=== PATIENT | female | born 1945 | race Caucasian/White ===

== ENCOUNTER 2018-06-21 18:41 | Observation (INO) | payer OTHER, BC ==
--- NOTE | 2018-06-21 20:13 | RAD REPORT ---
EXAM DESCRIPTION: RAD - Chest Pa And Lat (2 Views) - 06/21/2018 7:55 pm CLINICAL HISTORY: Cough, sore throat COMPARISON: October 2016 TECHNIQUE: PA and lateral views of the chest were obtained. FINDINGS: The lungs are normal volume. Patient has a mild baseline prominence of the lung markings. Focal posterior left base opacification is present suspicious for early pneumonia. Heart size is no rmal and central vasculature is within normal limits. No pleural effusion or pneumothorax seen. No acute bony finding noted. No aortic abnormality. IMPRESSION: Early left lung base pneumonia.
[2018-06-21 20:22] LABS: Potassium 3.1 mmol/L (3.5-5.1)
[2018-06-21 20:23] LABS: Absolute Lymphocytes (CBC) 2.3 K/uL (0.7-4.9); Absolute Monocytes 1.4 K/uL (0.1-1.3); Absolute Neutrophil 17.5 K/uL (1.8-8.0); Basophils % 0.2 % (0-1.3); Eosinophils % 0.1 % (0-4.4); Hematocrit 37.6 % (36.0-45.0); Lymphocytes % 10.9 % (15.3-44.8); Monocytes % 6.6 % (3.3-12.3)
[2018-06-21] MEDS ORDERED: MAGNESIUM HYDROXIDE 8% 30 ML PO PRN (20:44)
[2018-06-21] MEDS ORDERED: ONDANSETRON 4 MG/2 ML VIAL IV PRN (20:44)
[2018-06-21] MEDS ORDERED: CEFTRIAXONE 1000 MG/VIAL ONE (20:49)
[2018-06-21] MEDS ORDERED: AZITHROMYCIN 250 MG TAB ONE (20:49)
[2018-06-21] MEDS ORDERED: NA CHLORIDE 0.9% 50 ML IV ONE (20:50)
[2018-06-21] MEDS ORDERED: ALBUTEROL 2.5 MG/3 ML NEB SOL NEB SCH (21:00)
--- NOTE | 2018-06-21 21:10 | ER ---
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 Transition of care: patient was not received from another setting of care. Onset of symptoms was June 21, 2018. Risk Assessment: Do you want to hurt yourself or someone else? Patient reports no desire to harm self or others. Initial Sepsis Screen: Does the patient meet any 2 criteria? Yes Does the patient have a suspected source of infection? No. Patient's initial sepsis screen is negative. Care prior to arrival: None. 18:49 Method Of Arrival: Ambulatory 18:49 Acuity: MEENU 4 hj Triage Assessment: 18:50 General: Appears in no apparent distress. uncomfortable, Behavior is calm, cooperative, hj appropriate for age. Pain: Complains of pain in throat. Historical: - Allergies: 18:50 No Known Allergies; hj - Home Meds: 18:50 HRT [Active]; unknown antidepressant [Active]; hj - PMHx: 18:50 Depression; hj - PSHx: 18:50 Hysterectomy; Cholecystectomy; hj - Immunization history:: Adult Immunizations up to date. - Social history:: Smoking status: Patient/guardian denies using tobacco, Patient/guardian denies using alcohol. - Ebola Screening: : Patient negative for fever greater than or equal to 101.5 degrees Fahrenheit, and additional compatible Ebola Virus Disease symptoms Patient denies exposure to infectious person Patient denies travel to an Ebola-affected area in the 21 days before illness onset. Screenin:50 Abuse screen: Denies threats or abuse. Denies injuries from another. Nutritional hj screening: No deficits noted. Tuberculosis screening: No symptoms or risk factors identified. Fall Risk None identified. Assessment: 18:51 Respiratory: Airway is patent Respiratory effort is even, unlabored, Respiratory hj pattern is regular, symmetrical, EENT: Throat. 19:20 Reassessment: Patient appears in no apparent distress at this time. Patient and/or cc3 family updated on plan of care and expected duration. Pain level reassessed. Patient is alert, oriented x 3, equal unlabored respirations, skin warm/dry/pink. 20:26 Reassessment: Patient appears in no apparent distress at this time. Patient and/or cc3 family updated on plan of care and expected duration. Pain level reassessed. Patient is alert, oriented x 3, equal unlabored respirations, skin warm/dry/pink. Laboratory called for critical lab result of WBC 21.3, informed Dr. Calvillo. 21:36 Reassessment: Patient appears in no apparent distress at this time. Patient and/or cc3 family updated on plan of care and expected duration. Pain level reassessed. Patient is alert, oriented x 3, equal unlabored respirations, skin warm/dry/pink. 21:50 Reassessment: Patient appears in no apparent distress at this time. Patient and/or cc3 family updated on plan of care and expected duration. Pain level reassessed. Patient is alert, oriented x 3, equal unlabored respirations, skin warm/dry/pink. Room available in 214, called for report but was told by charge nurse Jessica to wait for their call. 22:10 Reassessment: Patient appears in no apparent distress at this time. Patient and/or cc3 family updated on plan of care and expected duration. Pain level reassessed. Patient is alert, oriented x 3, equal unlabored respirations, skin warm/dry/pink. report called to MARÍA Briscoe for continuity of care. 22:54 Reassessment: Patient appears in no apparent distress at this time. Patient and/or cc3 family updated on plan of care and expected duration. Pain level reassessed. Patient is alert, oriented x 3, equal unlabored respirations, skin warm/dry/pink. Patient left ER for admission vitally stable by wheelchair escorted by RENETTA Johnson. Vital Signs: 18:51 BP 131 / 56; Pulse 97; Resp 20; Temp 100.7(O); Pulse Ox 96% on R/A; Weight 68.04 kg; hj Height 5 ft. 2 in. (157.48 cm); Pain 4/10; 20:40 BP 150 / 81; Pulse 93; Resp 20 S; Pulse Ox 96% on R/A; cc3 21:27 BP 149 / 70; Pulse 81; Resp 19 S; Temp 99.3(O); Pulse Ox 96% on R/A; cc3 22:44 BP 127 / 67; Pulse 88; Resp 20 S; Pulse Ox 95% on R/A; cc3 18:51 Body Mass Index 27.44 (68.04 kg, 157.48 cm) ED Course: 18:44 Patient arrived in ED. mr 18:45 Presley Awan MD is Private Physician. mr 18:50 Triage completed. hj 18:51 Arm band placed on left wrist. hj 18:51 Patient has correct armband on for positive identification. Bed in low position. Call hj light in reach. Side rails up X 1. 19:20 Leonel Calvillo MD is Attending Physician. gs 19:20 Marya Gannon is Primary Nurse. cc3 19:47 Patient moved to radiology via wheelchair. az 19:50 X-ray completed. Patient tolerated procedure well. az 19:54 Patient moved back from radiology. az 19:55 XRAY Chest Pa And Lat (2 Views) In Process Unspecified. EDMS 20:15 Inserted saline lock: 22 gauge in left antecubital area, using aseptic technique. Blood cc3 collected. 20:15 Initial lab(s) drawn, by me, sent to lab. cc3 21:08 Justino Santana MD is Hospitalizing Provider. gs 22:54 No provider procedures requiring assistance completed. Patient admitted, IV remains in cc3 place. Administered Medications: 20:45 Drug: Rocephin - (cefTRIAXone) 1 grams Route: IVPB; Infused Over: 30 mins; Site: left cc3 antecubital; 21:20 Follow up: Response: No adverse reaction; IV Status: Completed infusion; IV Intake: [id number] 20:45 Drug: Zithromax 500 mg Route: PO; cc3 21:20 Follow up: Response: No adverse reaction cc3 Intake: 21:20 IV: 50ml; Total: 50ml. cc3 Outcome: 21:10 Decision to Hospitalize by Provider. gs 22:10 Admitted to Med/surg accompanied by tech, via wheelchair, room 214, with chart, Report cc3 called to SUMEET Briscoe 22:10 Condition: stable 22:10 Instructed on the need for admit, Demonstrated understanding of instructions. 22:54 Patient left the ED. cc3 Signatures: Dispatcher [employer] Mary SaulStone RN RN Leonel Calvillo MD MD gs Cordel, Charlene cc3 Amalia Miller Gabriella Corrections: (The following items were deleted from the chart) 18:54 18:51 Pulse 97bpm; Resp 20bpm; Pulse Ox 96% RA; Temp 100.7F Oral; 68.04 kg; Height 5 hj ft. 2 in.; BMI: 27.4; Pain 4/10; hj 18:54 18:51 Pulse 97bpm; Resp 20bpm; Pulse Ox 96% RA; Temp 100.7F Oral; 68.04 kg; Height 5 hj ft. 2 in.; BMI: 27.4; Pain 4/10; hj 22:25 21:50 Reassessment: Patient appears in no apparent distress at this time. Patient cc3 and/or family updated on plan of care and expected duration. Pain level reassessed. Patient is alert, oriented x 3, equal unlabored respirations, skin warm/dry/pink. Room available in 214, called for report but was told cc3 22:52 22:10 Reassessment: Patient appears in no apparent distress at this time. Patient cc3 and/or family updated on plan of care and expected duration. Pain level reassessed. Patient is alert, oriented x 3, equal unlabored respirations, skin warm/dry/pink. report to MARÍA Briscoe 3 06/22 00:01 06/21 21:05 Inserted saline lock: 22 gauge in left antecubital area, using aseptic cc3 technique. Blood collected. 06/22 00:06/21 21:05 Initial lab(s) drawn, by me, sent to lab. cc3
--- NOTE | 2018-06-21 21:11 | EDPHYS ---
Physician Documentation [facility] Name: Ronal Milligan Age: 73 yrs Sex: Female : 1945 Arrival Date: 06/21/2018 Time: 18:44 Bed 16 Private MD: Presley Awan V ED Physician Leonel Calvillo HPI: 06/21 20:54 This 73 yrs old Female presents to ER via Ambulatory with complaints of gs Cough, Sore Throat, Decreased Appetite. 20:54 The patient or guardian reports cough. gs 21:00 Onset: The symptoms/episode began/occurred 1 week(s) ago, and became worse and became gs persistent. Severity of symptoms: At their worst the symptoms were moderate, in the emergency department the symptoms are unchanged. Modifying factors: The symptoms are alleviated by nothing, the symptoms are aggravated by nothing. Associated signs and symptoms: Pertinent positives: fever, sore throat, laryngitis. The patient has experienced similar episodes in the past, a few times. The patient has not recently seen a physician. Historical: - Allergies: 18:50 No Known Allergies; hj - Home Meds: 18:50 HRT [Active]; unknown antidepressant [Active]; hj - PMHx: 18:50 Depression; hj - PSHx: 18:50 Hysterectomy; Cholecystectomy; hj - Immunization history:: Adult Immunizations up to date. - Social history:: Smoking status: Patient/guardian denies using tobacco, Patient/guardian denies using alcohol. - Ebola Screening: : Patient negative for fever greater than or equal to 101.5 degrees Fahrenheit, and additional compatible Ebola Virus Disease symptoms Patient denies exposure to infectious person Patient denies travel to an Ebola-affected area in the 21 days before illness onset. ROS: 21:00 All other systems are negative. gs Exam: 21:00 Head/Face: Normocephalic, atraumatic. Eyes: Pupils equal round and reactive to light, gs extra-ocular motions intact. Lids and lashes normal. Conjunctiva and sclera are non-icteric and not injected. Cornea within normal limits. Periorbital areas with no swelling, redness, or edema. Neck: Trachea midline, no thyromegaly or masses palpated, and no cervical lymphadenopathy. Supple, full range of motion without nuchal rigidity, or vertebral point tenderness. No Meningismus. Chest/axilla: Normal chest wall appearance and motion. Nontender with no deformity. No lesions are appreciated. Cardiovascular: Regular rate and rhythm with a normal S1 and S2. No gallops, murmurs, or rubs. Normal PMI, no JVD. No pulse deficits. Abdomen/GI: Soft, non-tender, with normal bowel sounds. No distension or tympany. No guarding or rebound. No evidence of tenderness throughout. Back: No spinal tenderness. No costovertebral tenderness. Full range of motion. Skin: Warm, dry with normal turgor. Normal color with no rashes, no lesions, and no evidence of cellulitis. MS/ Extremity: Pulses equal, no cyanosis. Neurovascular intact. Full, normal range of motion. Neuro: Awake and alert, GCS 15, oriented to person, place, time, and situation. Cranial nerves II-XII grossly intact. Motor strength 5/5 in all extremities. Sensory grossly intact. Cerebellar exam normal. Normal gait. 21:00 Constitutional: The patient appears alert, awake. 21:00 ENT: TM's: are normal, Posterior pharynx: erythema, that is moderate, Voice: is hoarse. 21:00 Respiratory: mild respiratory distress is noted, Respirations: tachypnea, that is mild, Breath sounds: rhonchi, that are mild, are located in both bases. Vital Signs: 18:51 BP 131 / 56; Pulse 97; Resp 20; Temp 100.7(O); Pulse Ox 96% on R/A; Weight 68.04 kg; Height 5 ft. 2 in. (157.48 cm); Pain 4/10; 20:40 BP 150 / 81; Pulse 93; Resp 20 S; Pulse Ox 96% on R/A; cc3 21:27 BP 149 / 70; Pulse 81; Resp 19 S; Temp 99.3(O); Pulse Ox 96% on R/A; cc3 22:44 BP 127 / 67; Pulse 88; Resp 20 S; Pulse Ox 95% on R/A; cc3 18:51 Body Mass Index 27.44 (68.04 kg, 157.48 cm) MDM: 19:32 Patient medically screened. 21:00 Differential Diagnosis: Bronchitis Influenza Viral Syndrome Pneumonia. Data reviewed: vital signs, nurses notes. Response to treatment: the patient's symptoms have mildly improved after treatment, and as a result, I will discharge patient. 06/21 18:53 Order name: Flu; Complete Time: 19:32 hj 06/21 18:53 Order name: Strep; Complete Time: 19:32 hj 06/21 19:36 Order name: CBC with Diff; Complete Time: 20:39 06/21 19:36 Order name: Basic Metabolic Panel 06/21 20:33 Order name: Blood Culture* 06/21 20:49 Order name: CBC with Automated Diff EDMS 06/21 20:49 Order name: CBC with Automated Diff EDMS 06/21 20:49 Order name: Comprehensive Metabolic Panel EDMS 06/21 20:49 Order name: Comprehensive Metabolic Panel EDMS 06/21 20:49 Order name: Lactate EDMS 06/21 20:49 Order name: Lactate EDMS 06/21 20:49 Order name: Lipid Profile EDMS 06/21 20:49 Order name: Lipid Profile EDMS 06/21 20:49 Order name: Magnesium EDMS 06/21 19:36 Order name: XRAY Chest Pa And Lat (2 Views); Complete Time: 20:16 06/21 20:49 Order name: Regular EDMS 06/21 20:49 Order name: Magnesium EDMS 06/21 20:49 Order name: Phosphorus EDMS 06/21 20:49 Order name: Phosphorus EDMS 06/21 20:49 Order name: NT PRO-BNP EDVA 06/21 20:49 Order name: NT PRO-BNP EDMS 06/21 21:49 Order name: Lactate EDMS 06/21 21:59 Order name: NT PRO-BNP EDMS Administered Medications: 20:45 Drug: Rocephin - (cefTRIAXone) 1 grams Route: IVPB; Infused Over: 30 mins; Site: left cc3 antecubital; 21:20 Follow up: Response: No adverse reaction; IV Status: Completed infusion; IV Intake: [id number] 20:45 Drug: Zithromax 500 mg Route: PO; cc3 21:20 Follow up: Response: No adverse reaction cc3 Disposition: 06/21/18 21:10 Hospitalization ordered by Justino Santana for Inpatient Admission. Preliminary diagnosis is Lobar pneumonia, unspecified organism. - Bed requested for Telemetry/MedSurg (Inpatient). - Status is Inpatient Admission. cc3 - Condition is Stable. - Problem is new. - Symptoms have improved. UTI on Admission? No Critical care time excluding procedures: 21:00 Critical care time: Bedside Care: 10 minutes, Consultation: 10 minutes, Family gs Intervention: 10 minutes. Total time: 30 minutes Signatures: Dispatcher [employer] EDMS Jennifer Joseph RN RN Stone Mazariegos RN RN Leonel Calvillo MD MD Marya Gannon 3 Corrections: (The following items were deleted from the chart) 21:44 21:10 Hospitalization Ordered by Justino Santana MD for Inpatient Admission. Preliminary diagnosis is Lobar pneumonia, unspecified organism. Bed requested for Telemetry/MedSurg (Inpatient). Status is Inpatient Admission. Condition is Stable. Problem is new. Symptoms have improved. UTI on Admission? No. 22:54 21:44 06/21/2018 21:10 Hospitalization Ordered by Justino Santana MD for Inpatient cc3 Admission. Preliminary diagnosis is Lobar pneumonia, unspecified organism. Bed requested for Telemetry/MedSurg (Inpatient). Status is Inpatient Admission. Condition is Stable. Problem is new. Symptoms have improved. UTI on Admission? No.
[2018-06-21] MEDS ORDERED: POTASSIUM CL SA 10 MEQ TAB PO ONE (22:07)
[2018-06-21] MEDS: NA CHLORIDE 0.9% 1,000 ML IV SCH (23:12)
[2018-06-21] MEDS: PIPER/TAZO/NS 3.375gm 3.375 GM/100 ML BAG IVPB SCH (23:14)
[2018-06-21] MEDS ORDERED: PIPER/TAZO/NS 3.375gm 6.750 GM/200 ML BAG ONE (23:19)
[2018-06-21 23:25] VITALS: BMI 27.4
[2018-06-22] MEDS: IPRATROPIUM BROM 0.5MG/2.5ML NEB SCH ×6 (04:40→19:25)
[2018-06-22] MEDS: PIPER/TAZO/NS 3.375gm 3.375 GM/100 ML BAG IVPB SCH (05:07)
[2018-06-22] MEDS: ACETAMINOPHEN 500 MG TAB PO PRN (05:25)
[2018-06-22 05:32] LABS: Urine Appearance CLEAR; Urine Bilirubin NEGATIVE (NEG); Urine Blood 1+ (NEG); Urine Color YELLOW; Urine Glucose NEGATIVE (NEG); Urine Protein NEGATIVE (NEG); Urine Specific Gravity 1.015 (1.005-1.030); Urine Urobilinogen 0.2 mg/dL (0.2-1.0)
[2018-06-22 05:41] LABS: Urine Microscopic Reflex ORDER UMIC
[2018-06-22 05:44] LABS: Urine Bacteria <20 /HPF (<20); Urine Culture Reflex Order NOT NEEDED; Urine RBC <5 /HPF (NONE SEEN)
[2018-06-22 05:54] LABS: Albumin 2.2 g/dL (3.4-5.0); Bilirubin Total 0.3 mg/dL (0.2-1.0); Magnesium 1.9 mg/dL (1.8-2.4); Phosphorus 2.5 mg/dL (2.5-4.9); Potassium 3.5 mmol/L (3.5-5.1); Protein, Total 7.5 g/dL (6.4-8.2)
[2018-06-22 06:00] LABS: Absolute Lymphocytes (CBC) 3.7 K/uL (0.7-4.9); Absolute Monocytes 1.1 K/uL (0.1-1.3); Absolute Neutrophil 10.2 K/uL (1.8-8.0); Basophils % 0.5 % (0-1.3); Eosinophils % 0.3 % (0-4.4); Hematocrit 32.9 % (36.0-45.0); Lymphocytes % 24.6 % (15.3-44.8); MPV 7.9 fL (7.6-11.3); Monocytes % 7.6 % (3.3-12.3); RBC Red Blood Cell Count 3.86 M/uL (3.86-4.86)
[2018-06-22] MEDS ORDERED: POTASSIUM PHOS IN 0.9 % NACL 15 MMOL/250 ML BAG IV ONE (07:00)
[2018-06-22] MEDS ORDERED: PNEUMOCOCCAL VACCINE 0.5 ML IMVAC ONE (08:00)
--- NOTE | 2018-06-22 08:16 | P.HP ---
Certification for Inpatient Patient admitted to: Observation With expected LOS: <2 Midnights Patient will require the following post-hospital care: None Practitioner: I am a practitioner with admitting privileges, knowledge of patient current condition, hospital course, and medical plan of care. Services: Services provided to patient in accordance with Admission requirements found in Title 42 Section 412.3 of the Code of Federal Regulations Patient History Date of Service: 06/21/18 Reason for admission: Acute strep pharyngitis History of Present Illness: Patient is a 73-year-old female came into the hospital with fever, cough and a sore throat. This been going on for the last week but has gotten progressively worse over the last couple of days. She is seen in the emergency room, and her workup revealed that she had strep pharyngitis. Her white count was significantly elevated, and her chest x-ray revealed a focal posterior left base opacification suspicious for early pneumonia. Decision was made to admit the patient for IV antibiotic therapy, and if we also wanted to monitor her symptomatically to make sure the chest x-ray findings or something that was going to be progressively getting worse. She was put in droplet precautions but will go ahead and discontinue this. Allergies No Known Drug Allergies Allergy (Verified 06/21/18 23:27) none Home Medications: Venlafaxine HCl [Effexor*] 75 mg PO DAILY 06/21/18 - Past Medical/Surgical History Has patient received pneumonia vaccine in the past: No Diabetic: No -: depression -: hysterectomy -: cholecystectomy - Family History Mother Medical History: Other (see notes) Notes: stroke Father Medical History: Heart disease - Social History Smoking Status: Never smoker Alcohol use: No CD- Drugs: No Caffeine use: Yes Place of Residence: Home Review of Systems 10-point ROS is otherwise unremarkable Physical Examination - Vital Signs Temperature: 97.2 F Blood Pressure: 150/80 Pulse: 76 Respirations: 20 Pulse Ox (%): 96 - Physical Exam General: Alert, In no apparent distress, Oriented x3 HEENT: Atraumatic, Other (Erythematous mucous membrane), EOMI, Sclerae nonicteric Neck: Supple, 2+ carotid pulse no bruit, No LAD, Without JVD or thyroid abnormality Respiratory: Clear to auscultation bilaterally, Normal air movement Cardiovascular: Regular rate/rhythm, Normal S1 S2, No murmurs Gastrointestinal: Normal bowel sounds, Soft and benign, Non-distended, No tenderness Musculoskeletal: No clubbing, No swelling, No tenderness Integumentary: No rashes Neurological: Normal gait, Normal speech, Normal strength at 5/5 x4 extr, Normal tone, Sensation intact, Cranial nerves 3-12 intact, Normal affect Lymphatics: No axilla or inguinal lymphadenopathy - Studies Laboratory Data (last 24 hrs) 06/21/18 20:00: Sodium 135 L, Potassium 3.1 L, BUN 12, Creatinine 1.09, Glucose 113 H 06/21/18 20:00: WBC 21.3 H*, Hgb 12.9, Hct 37.6, Plt Count 375 Microbiology Data (last 24 hrs): 06/21/18 18:56 Nasopharnyx Influenza Type A Antigen Screen - Final 06/21/18 18:56 Nasopharnyx Influenza Type B Antigen Screen - Final 06/21/18 18:56 Throat Group A Streptococcus Rapid Screen - Final Assessment & Plan - Problems (Diagnosis) (1) Acute streptococcal pharyngitis Current Visit: Yes Status: Acute (2) Left lower lobe pneumonia Current Visit: Yes Status: Acute (3) Leukocytosis Current Visit: Yes Status: Acute - Plan 1. Continue with IV antibiotics; may need to add an anti-inflammatory medication as well 2. Awaiting blood culture 3. Repeat chest x-ray if symptoms worsen 4. Continue with nebs as needed 5. O2 per protocol 6. Continue with gentle hydration 7. Repeat labs including CBC and renal function in a.m. 8. GI and DVT prophylaxis Discharge Plan: Home Plan to discharge in: 48 Hours - Advance Directives Does patient have a Living Will: No Does patient have a Durable POA for Healthcare: No - Code Status/Comfort Care Code Status Assessed: Yes Code Status: Full Code Critical Care: No Time Spent Managing PTS Care (In Minutes): 45
[2018-06-22] MEDS ORDERED: PIPER/TAZO/NS 3.375gm 3.375 GM/100 ML BAG IVPB SCH (09:00)
[2018-06-22] MEDS: ENOXAPARIN 40 MG/0.4 ML SQ SCH (09:03)
--- NOTE | 2018-06-22 11:31 | P.PN ---
Subjective Date of Service: 06/22/18 Chief Complaint: SICK SINCE May Subjective: Improving MS DONALD HAS COUGH, CONGESTION, BROWN SPUTUM, SORE THROAT. SHE HAS STREP THROAT POSITIVE AND L BASAL PNEUMONIA. SHE TOOK HER FLU VACCINE. NO ONE IS SICK AROUND HER. SHE IS FEELING SOME BETTER. Review of Systems 10-point ROS is otherwise unremarkable General: Weakness ENT: Throat Pain Respiratory: Cough Physical Examination - Vital Signs Temperature: 97.2 F Blood Pressure: 150/80 Pulse: 76 Respirations: 20 Pulse Ox (%): 96 - Physical Exam General: Alert, In no apparent distress HEENT: Atraumatic, PERRLA, EOMI Neck: Supple, JVD not distended Respiratory: Clear to auscultation bilaterally, Normal air movement Cardiovascular: Regular rate/rhythm, Normal S1 S2 Gastrointestinal: Normal bowel sounds, No tenderness Musculoskeletal: No tenderness Integumentary: No rashes Neurological: Normal speech, Normal tone, Normal affect Lymphatics: No axilla or inguinal lymphadenopathy - Studies Laboratory Data (last 24 hrs) 06/21/18 20:00: Sodium 135 L, Potassium 3.1 L, BUN 12, Creatinine 1.09, Glucose 113 H 06/21/18 20:00: WBC 21.3 H*, Hgb 12.9, Hct 37.6, Plt Count 375 Microbiology Data (last 24 hrs): 06/21/18 18:56 Nasopharnyx Influenza Type A Antigen Screen - Final 06/21/18 18:56 Nasopharnyx Influenza Type B Antigen Screen - Final 06/21/18 18:56 Throat Group A Streptococcus Rapid Screen - Final Medications List Reviewed: Yes Assessment And Plan - Current Problems (Diagnosis) (1) Streptococcus pneumoniae infection Current Visit: Yes Status: Acute Plan: ROCEPHIN IV. WILL DC ZOSYN SHE DOES NOT NEED PSEUDOMONAS OR ANAERBIC COVERAGE. (2) Acute streptococcal pharyngitis Current Visit: Yes Status: Acute Plan: DAILY LAB. WATCH WBC (3) Hyperglobulinemia Current Visit: Yes Status: Acute Plan: THIS CAN BE FROM INFECTION. I WILL CHECK SPEP AND HEP C ANTIBODY.
[2018-06-22] MEDS ORDERED: ALBUTEROL 2.5 MG/3 ML NEB SOL NEB SCH ×2 (12:00→14:00)
[2018-06-22] MEDS: LOSARTAN POTASSIUM 50 MG TABLET PO SCH ×2 (12:25→12:26)
[2018-06-22] MEDS: NA CHLORIDE 0.9% 1,000 ML IV SCH ×2 (12:26→23:02)
[2018-06-22] MEDS ORDERED: ALBUTEROL 2.5 MG/3 ML NEB SOL NEB PRN (13:36)
[2018-06-22] MEDS: CEFTRIAXONE/SWI 1gm 1 GM/10 ML SYR IV SCH (21:07)
[2018-06-23] MEDS: IPRATROPIUM BROM 0.5MG/2.5ML NEB SCH ×4 (01:25→19:24)
[2018-06-23 06:15] LABS: Phosphorus 2.9 mg/dL (2.5-4.9)
[2018-06-23] MEDS: ENOXAPARIN 40 MG/0.4 ML SQ SCH (09:16)
[2018-06-23] MEDS: VENLAFAXINE HCL 75 MG TABLET PO SCH (09:16)
[2018-06-23] MEDS: LOSARTAN POTASSIUM 50 MG TABLET PO SCH ×2 (10:08→23:44)
[2018-06-23] MEDS: NA CHLORIDE 0.9% 1,000 ML IV SCH ×2 (13:10→22:29)
--- NOTE | 2018-06-23 17:32 | P.PN ---
Subjective Date of Service: 06/23/18 Chief Complaint: SICK SINCE May Subjective: Improving MS DONALD HAS COUGH, CONGESTION, BROWN SPUTUM, SORE THROAT. SHE HAS STREP THROAT POSITIVE AND L BASAL PNEUMONIA. SHE TOOK HER FLU VACCINE. NO ONE IS SICK AROUND HER. SHE IS FEELING SOME BETTER. VERY STABLE CLINICALLY. STILL SOME SORENESS THROAT BUT CHEST CONGESTION IS GONE. Review of Systems 10-point ROS is otherwise unremarkable General: Weakness, Malaise Physical Examination - Vital Signs Temperature: 98.1 F Blood Pressure: 154/72 Pulse: 74 Respirations: 14 Pulse Ox (%): 96 - Physical Exam General: Alert, Acute distress, Mild distress HEENT: Atraumatic, PERRLA, EOMI Neck: Supple, JVD not distended Respiratory: Clear to auscultation bilaterally, Normal air movement Cardiovascular: Regular rate/rhythm, Normal S1 S2 Gastrointestinal: Normal bowel sounds, No tenderness Musculoskeletal: No tenderness Integumentary: No rashes Neurological: Normal speech, Normal tone, Normal affect Lymphatics: No axilla or inguinal lymphadenopathy - Studies Medications List Reviewed: Yes Assessment And Plan - Current Problems (Diagnosis) (1) Streptococcus pneumoniae infection Current Visit: Yes Status: Acute Plan: ROCEPHIN IV. WILL DC ZOSYN SHE DOES NOT NEED PSEUDOMONAS OR ANAERBIC COVERAGE. STABLE. DC IN AM POSSIBLE. CHECK LAB AGAIN. (2) Acute streptococcal pharyngitis Current Visit: Yes Status: Acute Plan: DAILY LAB. WATCH WBC (3) Hyperglobulinemia Current Visit: Yes Status: Acute Plan: THIS CAN BE FROM INFECTION. I WILL CHECK SPEP AND HEP C ANTIBODY.
[2018-06-23 18:03] LABS: Absolute Lymphocytes (CBC) 2.2 K/uL (0.7-4.9); Absolute Monocytes 0.7 K/uL (0.1-1.3); Absolute Neutrophil 7.5 K/uL (1.8-8.0); Basophils % 0.6 % (0-1.3); Eosinophils % 4.2 % (0-4.4); Hematocrit 32.4 % (36.0-45.0); Lymphocytes % 20.2 % (15.3-44.8); MPV 7.6 fL (7.6-11.3); Monocytes % 6.8 % (3.3-12.3); RBC Red Blood Cell Count 3.74 M/uL (3.86-4.86)
[2018-06-23 18:07] LABS: Potassium 3.6 mmol/L (3.5-5.1)
[2018-06-23] MEDS ORDERED: POTASSIUM CL SA 10 MEQ TAB PO ONE (18:17)
[2018-06-23 18:35] LABS: Blood Morphology Comment NOTED (NOT SEEN); Platelet Estimate ADEQ
[2018-06-23 18:36] LABS: Stomatocytes 1+
[2018-06-23] MEDS: ACETAMINOPHEN 500 MG TAB PO PRN (20:30)
[2018-06-23] MEDS: CEFTRIAXONE/SWI 1gm 1 GM/10 ML SYR IV SCH (20:32)
[2018-06-23] MEDS ORDERED: PNEUMOCOCCAL VACCINE 0.5 ML IMVAC ONE (22:00)
[2018-06-24] MEDS: IPRATROPIUM BROM 0.5MG/2.5ML NEB SCH ×3 (02:10→13:50)
[2018-06-24] MEDS: ACETAMINOPHEN 500 MG TAB PO PRN ×2 (02:12→09:24)
[2018-06-24] MEDS ORDERED: LOSARTAN POTASSIUM 50 MG TABLET PO SCH (09:00)
[2018-06-24] MEDS: VENLAFAXINE HCL 75 MG TABLET PO SCH (09:24)
[2018-06-24] MEDS: ENOXAPARIN 40 MG/0.4 ML SQ SCH (09:24)
[2018-06-24] MEDS ORDERED: BISOPROLOL/HCTZ 2.5/6.25MG TAB PO ONE (12:20)
--- NOTE | 2018-06-24 12:47 | P.DS ---
Admission Date: 06/21/18 Discharge Date: 06/24/18 Disposition: ROUTINE DISCHARGE Reason for Admission: SICK SINCE May - Problems (1) Streptococcus pneumoniae infection Current Visit: Yes Status: Acute (2) Acute streptococcal pharyngitis Current Visit: Yes Status: Acute (3) Hyperglobulinemia Current Visit: Yes Status: Acute Hospital Course: Ms. Milligan has had strep pneumonia. She is well now, will continue abx for 10 days. She never had bp issues. will fu on BP. She will check at home. She is given Losartan for home. Vital Signs/Physical Exam: Temp Pulse Resp BP Pulse Ox 97.6 F 70 14 183/88 H 97 06/24/18 08:00 06/24/18 08:00 06/24/18 08:00 06/24/18 08:00 06/24/18 08:00 Laboratory Data at Discharge: WBC 11.0 K/uL (4.3-10.9) H D 06/23/18 17:40 Hgb 11.0 g/dL (12.0-15.0) L 06/23/18 17:40 Hct 32.4 % (36.0-45.0) L 06/23/18 17:40 Plt Count 386 K/uL (152-406) 06/23/18 17:40 Sodium 140 mmol/L (136-145) 06/23/18 17:40 Potassium 4.7 mmol/L (3.5-5.1) 06/24/18 05:32 BUN 12 mg/dL (7-18) 06/23/18 17:40 Creatinine 0.84 mg/dL (0.55-1.3) 06/23/18 17:40 Glucose 130 mg/dL (74-106) H 06/23/18 17:40 Phosphorus 2.9 mg/dL (2.5-4.9) 06/23/18 05:27 Magnesium 1.9 mg/dL (1.8-2.4) 06/22/18 05:15 Total Bilirubin 0.3 mg/dL (0.2-1.0) 06/22/18 05:15 AST 11 U/L (15-37) L 06/22/18 05:15 ALT 51 U/L (12-78) 06/22/18 05:15 Alkaline Phosphatase 127 U/L (45-117) H 06/22/18 05:15 Triglycerides 105 mg/dL (<150) 06/22/18 05:15 Cholesterol 140 mg/dL (<200) 06/22/18 05:15 HDL Cholesterol 34 mg/dL (40-60) L 06/22/18 05:15 Cholesterol/HDL Ratio 4.12 06/22/18 05:15 Home Medications: Venlafaxine HCl [Effexor*] 75 mg PO DAILY 06/21/18 Amox/Clavulanate [Augmentin 875-125 Tab] 875 mg PO BID #24 tab 06/24/18 Losartan Potassium 100 mg PO DAILY #90 tablet 06/24/18 New Medications: Amox/Clavulanate [Augmentin 875-125 Tab] 875 mg PO BID #24 tab Losartan Potassium 100 mg PO DAILY #90 tablet Diet: AHA
[2018-06-24 13:31] VITALS: BP 198/88; TEMP 98.3
[2018-06-24 14:49] VITALS: O2SAT 96
[2018-06-25 21:26] LABS: HBsAG Nonreactive (Nonreactive); Hepatitis A IgM Antibody Nonreactive
[2018-06-29 21:00] LABS: Albumin, (SPE) 2.7 g/dL (3.8-4.8); Alpha-1-Globulins 0.6 g/dL (0.2-0.3); Gamma Globulins 0.3 g/dL (0.8-1.7); INTERPRETATION REPORT
== END 2018-06-24 17:06 | disposition home or self-care (01) ==
LOC: ER 18:41 → ERHOLD 21:01 → 2ND 22:26
PROVIDERS: ADMIT Internal Medicine; ATTEND Hospitalist
DX: J13 Pneumonia due to Streptococcus pneumoniae (principal); J02.0 Streptococcal pharyngitis; R77.1 Abnormality of globulin; Z23 Encounter for immunization
CPT/HCPCS: 36415; 71046; 80048; 80053; 80061; 80074; 81003; 81015; 83605; 83735; 83880; 84100; 84132; 84165; 85025; 87040; 87081; 87804; 90670; 94640; 94760; 96365; 99285; G0009; G0378; J0696; J1650; J2543; J7030

== ENCOUNTER 2019-01-14 22:04 | Emergency (ER) | payer OTHER, BC ==
--- NOTE | 2019-01-14 22:31 | ER ---
Nurse's Notes [facility] Name: Ronal Milligan Age: 73 yrs Sex: Female : 1945 Arrival Date: 01/14/2019 Time: 22:10 Bed 25 Private MD: Diagnosis: Cellulitis of right lower limb Presentation: 01/14 22:14 Presenting complaint: Patient states: "Thursday I had some skin cancer removed off of my aj1 leg, and this time it got a real bad rash, and itched real bad and got a blister around the wound itself. I've been using gauze since then to cover it up, but the redness has gone all the way around my leg now". Transition of care: patient was not received from another setting of care. Onset of symptoms was January 14, 2019. Risk Assessment: Do you want to hurt yourself or someone else? Patient reports no desire to harm self or others. Initial Sepsis Screen: Does the patient meet any 2 criteria? No. Patient's initial sepsis screen is negative. Does the patient have a suspected source of infection? Yes: Skin breakdown/wound. Care prior to arrival: None. 22:14 Method Of Arrival: Ambulatory aj1 22:14 Acuity: MEENU 3 aj1 Triage Assessment: 22:17 General: Appears in no apparent distress. comfortable, Behavior is calm, cooperative, aj1 appropriate for age. Pain: Denies pain. Neuro: Level of Consciousness is awake, alert, obeys commands. Cardiovascular: Patient's skin is warm and dry. Respiratory: Airway is patent Respiratory effort is even, unlabored, Respiratory pattern is regular, symmetrical. Historical: - Allergies: 22:17 No Known Allergies; aj1 - Home Meds: 22:17 blood pressure medicine [Active]; cholesterol medicine [Active]; unknown antidepressant aj1 [Active]; - PMHx: 22:17 Depression; Hypertension; Hyperlipidemia; aj1 - PSHx: 22:17 skin cancer removed; aj1 - Immunization history:: Flu vaccine is up to date. - Social history:: Smoking status: Patient/guardian denies using tobacco. - Ebola Screening: : Patient denies travel to an Ebola-affected area in the 21 days before illness onset. - Family history:: not pertinent. - Hospitalizations: : No recent hospitalization is reported. Screenin:20 Abuse screen: Denies threats or abuse. Denies injuries from another. Nutritional ca1 screening: No deficits noted. Tuberculosis screening: No symptoms or risk factors identified. Fall Risk None identified. Assessment: 22:00 General: Appears in no apparent distress. comfortable, Behavior is calm, cooperative. rv 22:00 Pain: Denies pain. Neuro: Level of Consciousness is awake, alert, obeys commands, rv Oriented to person, place, time, situation. Cardiovascular: Patient's skin is warm and dry. Respiratory: Airway is patent. GI: No signs and/or symptoms were reported involving the gastrointestinal system. : No signs and/or symptoms were reported regarding the genitourinary system. EENT: No signs and/or symptoms were reported regarding the EENT system. Derm: Wound noted right leg Wound is post op, redness and swelling around the site. Vital Signs: 22:17 BP 186 / 72; Pulse 65; Resp 18; Temp 98.1; Pulse Ox 100% on R/A; Weight 68.49 kg (R); aj1 Height 5 ft. 1 in. (154.94 cm) (R); Pain 0/10; 22:17 Body Mass Index 28.53 (68.49 kg, 154.94 cm) aj1 ED Course: 22:10 Patient arrived in ED. mr 22:16 Triage completed. aj1 22:17 Arm band placed on Patient placed in an exam room. aj1 22:19 Gibson Carrillo MD is Attending Physician. rn 22:20 Patient has correct armband on for positive identification. Bed in low position. Call ca1 light in reach. Side rails up X 1. Pulse ox on. NIBP on. Warm blanket given. 22:32 Carlos Manuel Pritchett, SUMEET is Primary Nurse. rv 22:47 No provider procedures requiring assistance completed. Patient did not have IV access ca1 during this emergency room visit. Administered Medications: 22:46 Drug: Bactrim (160 mg-800 mg (DS) 1 tablet Route: PO; rv 22:47 Follow up: Response: Medication administered at discharge. rv 22:46 Drug: Clindamycin 300 mg Route: PO; rv 22:46 Follow up: Response: Medication administered at discharge. rv Outcome: 22:31 Discharge ordered by . rn 22:47 Discharged to home ambulatory. ca1 22:47 Condition: stable 22:47 Discharge instructions given to patient, Instructed on discharge instructions, follow up and referral plans. medication usage, Demonstrated understanding of instructions, follow-up care, medications, Prescriptions given X 2. 22:49 Patient left the ED. ca1 Signatures: Michelle Mejias, RN RN aj1 Mary Pierce mr Gibson Carrillo MD MD rn Vicente, Ronaldo, RN RN Teresita Jesus RN RN ca1
--- NOTE | 2019-01-14 22:32 | EDPHYS ---
Physician Documentation [facility] Name: Ronal Milligan Age: 73 yrs Sex: Female : 1945 Arrival Date: 01/14/2019 Time: 22:10 Bed 25 Private MD: ED Physician Gibsno Carrillo HPI: 01/14 22:26 This 73 yrs old Female presents to ER via Ambulatory with complaints of rn Infected surgical site. 22:26 The patient presents with cellulitis of the right leg. Description: draining, rn erythematous. Onset: The symptoms/episode began/occurred 3 day(s) ago. Possible cause(s): unknown. Modifying factors: the symptoms are alleviated by nothing, the symptoms are aggravated by squeezing the lesion and expressing the contents, touching. Severity of symptoms: At their worst the symptoms were mild, in the emergency department the symptoms are unchanged. The patient has not experienced similar symptoms in the past. 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 NO fever. . Historical: - Allergies: 22:17 No Known Allergies; aj1 - Home Meds: 22:17 blood pressure medicine [Active]; cholesterol medicine [Active]; unknown antidepressant aj1 [Active]; - PMHx: 22:17 Depression; Hypertension; Hyperlipidemia; aj1 - PSHx: 22:17 skin cancer removed; aj1 - Immunization history:: Flu vaccine is up to date. - Social history:: Smoking status: Patient/guardian denies using tobacco. - Ebola Screening: : Patient denies travel to an Ebola-affected area in the 21 days before illness onset. - Family history:: not pertinent. - Hospitalizations: : No recent hospitalization is reported. ROS: 22:26 Constitutional: Negative for fever, chills, and weight loss, Eyes: Negative for injury, rn pain, redness, and discharge, Cardiovascular: Negative for chest pain, palpitations, and edema, Respiratory: Negative for shortness of breath, cough, wheezing, and pleuritic chest pain, Abdomen/GI: Negative for abdominal pain, nausea, vomiting, diarrhea, and constipation, MS/Extremity: Negative for injury and deformity, Skin: + rash and erythema to RLE Neuro: Negative for headache, weakness, numbness, tingling, and seizure. Exam: 22:26 Constitutional: This is a well developed, well nourished patient who is awake, alert, rn and in no acute distress. Ambulatory to room without difficulty or assistance. Skin: Warm, dry, excisional surgical wound medial RLE with surrounding erythematous almost petechial rash that spans a radius of 2cm from wound edge, non-blanching, no fluctuance, clear drainage from wound. No streaking. MS/ Extremity: Pulses equal, no cyanosis. Neurovascular intact. Full, normal range of motion. Equal circumference. Vital Signs: 22:17 BP 186 / 72; Pulse 65; Resp 18; Temp 98.1; Pulse Ox 100% on R/A; Weight 68.49 kg (R); aj1 Height 5 ft. 1 in. (154.94 cm) (R); Pain 0/10; 22:17 Body Mass Index 28.53 (68.49 kg, 154.94 cm) aj1 MDM: 22:20 Patient medically screened. rn 22:26 Differential diagnosis: cellulitis. Data reviewed: vital signs, nurses notes, and as a rn result, I will discharge patient. Counseling: I had a detailed discussion with the patient and/or guardian regarding: the historical points, exam findings, and any diagnostic results supporting the discharge/admit diagnosis, the need for outpatient follow up, to return to the emergency department if symptoms worsen or persist or if there are any questions or concerns that arise at home. Special discussion: I discussed with the patient/guardian in detail that at this point there is no indication for admission to the hospital. It is understood, however, that if the symptoms persist or worsen the patient needs to return immediately for re-evaluation. Based on the history and exam findings, there is no indication for further emergent testing or inpatient evaluation. I discussed with the patient/guardian the need to see the provider network analyst for further evaluation of the symptoms. ED course: Is planning on calling provider network analyst tomorrow for appt on Thursday, return precautions given and understood.. Administered Medications: 22:46 Drug: Bactrim (160 mg-800 mg (DS) 1 tablet Route: PO; rv 22:47 Follow up: Response: Medication administered at discharge. rv 22:46 Drug: Clindamycin 300 mg Route: PO; rv 22:46 Follow up: Response: Medication administered at discharge. rv Disposition: 01/14/19 22:31 Discharged to Home. Impression: Cellulitis of right lower limb. - Condition is Stable. - Discharge Instructions: Cellulitis, Adult. - Prescriptions for Clindamycin HCl 300 mg Oral Capsule - take 1 capsule by ORAL route every 6 hours for 10 days; 40 capsule. Bactrim DS 800- 160 mg Oral Tablet - take 1 tablet by ORAL route every 12 hours for 10 days; 20 tablet. - Medication Reconciliation Form, Thank You Letter, Antibiotic Education, Prescription Opioid Use form. - Follow up: Private Physician; When: As needed; Reason: Recheck today's complaints, Re-evaluation by your physician. - Problem is new. - Symptoms are unchanged. Signatures: Michelle Mejias RN RN aj1 Gibson Carrillo MD MD rn Vicente, Ronaldo, RN RN rv Acob, Teresita RN RN ca1 Corrections: (The following items were deleted from the chart) 22:49 22:31 01/14/2019 22:31 Discharged to Home. Impression: Cellulitis of right lower limb. ca1 Condition is Stable. Forms are Medication Reconciliation Form, Thank You Letter, Antibiotic Education, Prescription Opioid Use. Follow up: Private Physician; When: As needed; Reason: Recheck today's complaints, Re-evaluation by your physician. Problem is new. Symptoms are unchanged. rn
[2019-01-14] MEDS ORDERED: SMZ./TMP. 800/160 MG TABLET ONE (22:53)
[2019-01-14] MEDS ORDERED: CLINDAMYCIN HCL 150 MG CAP ONE (22:53)
[2019-01-14 22:56] VITALS: BP 186/72; TEMP 98.1; O2SAT 100
== END 2019-01-14 22:49 | disposition home or self-care (01) ==
LOC: ER 22:04
DX: L03.115 Cellulitis of right lower limb (principal); I10 Essential (primary) hypertension; E78.5 Hyperlipidemia, unspecified; F32.9 Major depressive disorder, single episode, unspecified; Z85.828 Personal history of other malignant neoplasm of skin
CPT/HCPCS: 99283